=== PATIENT | male | born 1955 | race Caucasian/White ===

== ENCOUNTER 2018-08-04 13:20 | Emergency (ER) | payer SELFPAY ==
[2018-08-04] MEDS ORDERED: NS 0.9% 1000 ML** 1,000 ML IV ONE (13:25)
--- NOTE | 2018-08-04 13:28 | ED ---
Neurological HPI - HPI Summary HPI Summary: This patient is a 62 year old M presenting to [facility] with a chief complaint of dizziness, slurred speech, facial droop, and difficulty standing beginning 35 minutes ago. Patient additionally vomited prior to arrival. Patient is unsure of any history of HTN, CAD, high cholesterol. He denies any current medications. - History of Current Complaint Stated Complaint: Code Muñoz Last Known Well Date: 12:45 08/04/18 Hx Obtained From: Patient Onset/Duration: Sudden Onset, Started minutes ago Timing: Constant Neurological Deficit Location: Facial Character: Dizzy, Motor Weakness, Impaired Speech Episode Lasting: Seconds/Minutes Aggravating: Nothing Alleviating: Nothing Associated Signs and Symptoms: Positive: Unsteady Gait, Impaired Speech, Nausea/ Vomiting - Allergy/Home Medications Allergies/Adverse Reactions: Allergies Allergy/AdvReac Type Severity Reaction Status Date / Time No Known Allergies Allergy Verified 08/04/18 14:17 PMH/Surg Hx/FS Hx/Imm Hx Endocrine/Hematology History: Denies: Hx Anticoagulant Therapy Cardiovascular History: Denies: Hx Coronary Artery Disease, Hx Hypercholesterolemia, Hx Hypertension Neurological History: Denies: Hx Transient Ischemic Attacks (TIA) - Surgical History Surgery Procedure, Year, and Place: none reported Infectious Disease History: Unable to Obtain/Confirm - Family History Known Family History: Positive: Hypertension - Social History Lives: With Family Alcohol Use: Rare Hx Substance Use: No Substance Use Type: Reports: None Review of Systems Positive: Vomiting Neurological: Other - facial droop, dizziness Positive: Weakness, Slurred Speech All Other Systems Reviewed And Are Negative: Yes Physical Exam - Summary Physical Exam Summary: Patient evaluated at 13:19. VITAL SIGNS: Reviewed. GENERAL: Patient is a well-developed and nourished male who is lying comfortable in the stretcher. Patient is not in any acute respiratory distress. HEAD AND FACE: No signs of trauma. No ecchymosis, hematomas or skull depressions. No sinus tenderness. Facial droop. EYES: PERRLA, EOMI x 2, No injected conjunctiva, no nystagmus. EARS: Hearing grossly intact. Ear canals and tympanic membranes are within normal limits. MOUTH: Oropharynx within normal limits. NECK: Supple, trachea is midline, no adenopathy, no JVD, no carotid bruit, no c- spine tenderness, neck with full ROM. CHEST: Symmetric, no tenderness at palpation LUNGS: Clear to auscultation bilaterally. No wheezing or crackles. CVS: Regular rate and rhythm, S1 and S2 present, no murmurs or gallops appreciated. ABDOMEN: Soft, non-tender. No signs of distention. No rebound no guarding, and no masses palpated. Bowel sounds are normal. EXTREMITIES: FROM in all major joints, no edema, no cyanosis or clubbing. NEURO: Alert and oriented x 3. Right sided ataxia. Speech is slurred. Patient follows commands. SKIN: Dry and warm GCS: 15 Triage Information Reviewed: Yes Vital Signs Reviewed: Yes - [place] Coma Scale Best Eye Response: 4 - Spontaneous Best Motor Response: 6 - Obeys Commands Best Verbal Response: 5 - Oriented Coma Scale Total: 15 Diagnostics - Laboratory Result Diagrams: 08/04/18 13:36 08/04/18 13:36 Lab Statement: Any lab studies that have been ordered have been reviewed, and results considered in the medical decision making process. - Radiology CXR Radiology Interpretation Completed By: Radiologist Summary of Radiographic Findings: CARDIOMEGALY. NO ACTIVE CARDIOPULMONARY DISEASE. ED Physician has reviewed this report. - CT Brain CT CT Interpretation Completed By: Radiologist Summary of CT Findings: 2 CM INTRAPARENCHYMAL HEMATOMA OF THE RIGHT CEREBELLUM WITHOUT SHIFT. PRELIMINARY FINDINGS WERE DISCUSSED WITH DR. HERNANDES IN THE EMERGENCY DEPARTMENT AT. APPROXIMATELY 1:31 PM ON AUGUST 04, 2018. ED Physician has reviewd this report. - EKG 1332 Cardiac Rate: NL - 68 BPM EKG Rhythm: Sinus Rhythm Summary of EKG Findings: LVH, no STEMI, right axis NIH Scale - NIH Scale Level of Consciousness: Alert/Keenly Responsive Ask Patient the Month and His/Her Age: Both Correct Ask Pt to Open/Close Eyes and Styrene Dehydration Reactor Operator/Release Non-Paretic Hand: Both Correctly Best Gaze (Only Horizontal Eye Movement): Normal Visual Field Testing: No Visual Loss Facial Paresis-Pt to Smile & Close Eyes or Grimace Symmetry: Minor Paralysis Motor Function - Right Arm: No Drift-Holds 10 Seconds Motor Function - Left Arm: No Drift-Holds 10 Seconds Motor Function - Right Leg: No Drift-Holds 10 Seconds Motor Function - Left Leg: No Drift-Holds 10 Seconds Limb Ataxia-Must be out of Proportion to Weakness Present: Present in One Limb Sensory (Use Pinprick to Test Arms/Legs/Trunk/Face): Normal Best Language (Describe Picture, Name Items): No Aphasia Dysarthria (Read Several Words): Slurs Some Words Extinction and Inattention: No Abnormality Total Score: 3 Re-Evaluation - Re-Evaluation 1 Re-Evaluation Time: 13:49 Change: Unchanged - Results and plan discussed with patient. Patient and family prefers transfer to [facility]. Course/Dx - Course Assessment/Plan: This patient is a 62-year-old male male who presents to the emergency department with a chief complaint of having dizziness unable to ambulate. In the physical exam the patient has slurred speech facial droop and he is ataxic. Patient reports no past medical history, no surgical history and he doesnt take any medications. However the patient hasnt seen a doctor for more than the last 10 years. Therefore we called a code grade. The patient was placed in a monitor technician and we noticed that the patient is very hypertensive. Therefore the patient was given hydralazine and he was placed in initially nitroprusside however he was changed to nicardipine as a preference from Dr. Martin from [facility] ICU. Head CT impression: 2 cm intraparenchymal hematoma of the right Cerebellum without shift. Chest x-ray impression: Cardiomegaly. No active cardiopulmonary disease. EKG shows a normal sinus rhythm without evidence of the patient has an LVH. In the ED course the patient was given Keppra prevent seizures, I discussed the case with Dr. Levin from neurosurgery and he recommends for the patient to be transferred to a high level of care. Therefore I discussed the case with Dr. Martin hearing aid assembly supervisor from the [facility] and he accepted the patient for admission. He requested to change the nitroprusside to nicardipine to control the hypertensive emergency. Also he requested to give 1 dose of hydralazine. He was given potassium IV. Patient also was given Zofran to prevent any nausea. At this point the patient continues to be alert and oriented 3 and he is keeping his airway. Therefore, I decided not to intubate the patient at this time. Dr. Martin agrees with the and management doctor this point. The blood pressure has improved, from 257/113, to 214/103. The patient will be transferred with the [facility]. - Diagnoses Provider Diagnoses: Hemorrhagic cerebrovascular accident (CVA) During the Visit The Following Alert/Code Occurred: Code Chavez - 1321 - Critical Care Time Critical Care Time: 30-74 min Discharge - Sign-Out/Discharge Documenting (check all that apply): Patient Departure - transfer Patient Received Moderate/Deep Sedation with Procedure: No - Discharge Plan Condition: Guarded Disposition: TRANS HIGHER LVL OF CARE FAC Referrals: No Primary Care Phys,NOPCP [Primary Care Provider] - - Billing Disposition and Condition Condition: GUARDED Disposition: Trans Higher Lvl of Care Fac - Attestation Statements Document Initiated by Scribe: Yes Documenting Scribe: Daina iRvera Provider For Whom Anthony is Documenting (Include Credential): Dayron Hernandes MD Scribe Attestation: Daina Goodson, scribed for Dayron Hernandes MD on 08/04/18 at 1425. Scribe Documentation Reviewed: Yes Provider Attestation: The documentation as recorded by the Daina baltazar accurately reflects the service I personally performed and the decisions made by Dayron etienne MD Status of Scribe Document: Viewed
[2018-08-04] MEDS ORDERED: Labetalol IV* 5 MG/ML 20 ML VIAL IV PUSH ONE (13:29)
[2018-08-04 13:43] LABS: ABS Basophils 0.1 10^3/ul (0-0.2); ABS Eosinophils 0.1 10^3/ul (0-0.6); ABS Lymphocytes 2.5 10^3/ul (1.0-4.8); ABS Monocytes 0.9 10^3/ul (0-0.8); ABS Neutrophils 8.5 10^3/ul (1.5-7.7); ABS Nucleated RBC 0 10^3/ul; Hematocrit 46 % (36-46); Hemoglobin 15.3 g/dL (14.0-18.0); Lymphocyte % 20.8 %; Mean Corpuscular HGB Conc 33 g/dL (31-36); Mean Corpuscular Hemoglobin 29 pg (27-31); Mean Corpuscular Volume 88 fL (80-94); Mean Platelet Volume 8.2 fL (7.4-10.4); Nucleated Red Blood Cells % 0; Platelet Count 253 10^3/uL (150-450); Red Blood Count 5.26 10^6 /uL (4.18-5.48); Red Cell Distribution Width 14 % (10.5-15); White Blood Count 12.1 10^3/uL (3.5-10.8)
[2018-08-04 13:51] LABS: Activated Partial Thrombo Time 29.1 seconds (26.0-36.3); INR 0.94 (0.77-1.02)
[2018-08-04] MEDS ORDERED: nitroGLYCERIN DRIP* 25,000 MCG/250 ML BTL ONE (13:57)
[2018-08-04] MEDS ORDERED: NitroPRUSSide* 50 MG in D5W 250 ML BAG* 248 ML IVPB SCH (14:00)
[2018-08-04] MEDS ORDERED: levETIRAcetam IV* 1,000 MG in NS 0.9% 100 ML* 100 ML IVPB SCH (14:00)
[2018-08-04 14:01] LABS: Albumin 4.3 g/dL (3.2-5.2); Albumin/Globulin Ratio 1.5 (1-3); BUN/Creatinine Ratio 17.2 (8-20); Calcium 9.8 mg/dL (8.6-10.3); EGFR Non-African American 76.9 (>60); Globulin 2.9 g/dL (2-4); HDL Cholesterol 34.3 mg/dL; Potassium 3.3 mmol/L (3.5-5.0); Total Bilirubin 0.5 mg/dL (0.2-1.0); Total Protein 7.2 g/dL (6.4-8.9)
[2018-08-04 14:03] LABS: Troponin I 0.03 ng/mL (<0.04)
[2018-08-04] MEDS ORDERED: hydrALAZINE IV* 20 MG/ML VIAL IV SLOW PU ONE (14:08)
[2018-08-04] MEDS ORDERED: niCARdipine 0.1MG/ML IVPREMIX* 20 MG/200 ML BAG IV ONE (14:10)
[2018-08-04] MEDS ORDERED: hydrALAZINE IV* 20 MG/ML VIAL ONE (14:10)
[2018-08-04] MEDS ORDERED: Ondansetron INJ* 2 MG/ML VIAL ONE (14:11)
[2018-08-04] MEDS ORDERED: KCL 10 MEQ/50 ML IVPREMIX* 10 MEQ/50 ML BAG IV ONE (14:26)
[2018-08-04] MEDS ORDERED: niCARdipine 0.1MG/ML IVPREMIX* 20 MG/200 ML BAG IV SCH (15:00)
[2018-08-04 16:31] VITALS: BP 179/92
== END 2018-08-04 15:25 | disposition short-term general hospital (02) ==
LOC: ED 13:20
DX: I62.9 Nontraumatic intracranial hemorrhage, unspecified (principal); R11.2 Nausea with vomiting, unspecified; R42 Dizziness and giddiness; R53.1 Weakness
CPT/HCPCS: 36415; 70450; 71045; 80053; 80061; 83605; 84484; 85025; 85610; 85730; 86850; 86900; 86901; 93005; 96365; 96375; 99284; J0360; J2405

== ENCOUNTER 2018-08-10 11:43 | Observation (INO) | payer MEDICAID ==
[2018-08-10] MEDS ORDERED: Labetalol IV* 5 MG/ML 20 ML VIAL IV PUSH ONE (12:16)
[2018-08-10] MEDS ORDERED: Diltiazem IV* 5 MG/ML 5 ML VIAL (for loading dose/IV Push) (25 MG) IV SLOW PU ONE (12:24)
[2018-08-10] MEDS ORDERED: Diltiazem IV* 5 MG/ML 5 ML VIAL (for loading dose/IV Push) (25 MG) ONE ×2 (12:25)
--- NOTE | 2018-08-10 12:30 | ED ---
Hypertension - HPI Summary HPI Summary: The patient is a 62 y/o M presenting to [facility] with a chief complaint of HTN in the 200s mmHG systolic this morning. Six days ago, the patient was at [facility] but was transferred to [facility] due to a brain bleed, and was discharged yesterday to [facility]. Per family, [facility] wasn't aware that the patient was in the facility, so he didn't have his medications last night, but he did have them this morning at 10:00. He was not aware that he had HTN until he was at [facility] because he doesn't visit a PCP. While at [facility], it was found that he had mild some left-sided neurological changes, and he has experienced a few small strokes, microbleeding, and the bleed most recently diagnosed in the cerebellum. He had remained stable during his stay. He additionally has edema in the BLE. His is no pain at this time. - History of Current Complaint Chief Complaint: EDHypertension Stated Complaint: HIGH BLOOD PRESSURE Time Seen by Provider: 08/10/18 11:46 Hx Obtained From: Patient Onset/Duration: Started Hours Ago - this morning, Still Present Reported Blood Pressure Prior To Arrival: 200 mmHg systolic Aggravating Factor(s): Nothing Alleviating Factor(s): Nothing Associated Signs & Symptoms: Swelling - BLE - Allergies/Home Medications Allergies/Adverse Reactions: Allergies Allergy/AdvReac Type Severity Reaction Status Date / Time No Known Allergies Allergy Verified 08/10/18 12:02 Home Medications: Home Medications Acetaminophen [APAP] 650 mg PO SEE INSTRUCTIONS PRN 08/10/18 [History Confirmed 08/10/18] Atorvastatin* [Lipitor*] 80 mg PO DAILY 08/10/18 [History Confirmed 08/10/18] Docusate Sodium [Colace] 100 mg PO BID 08/10/18 [History Confirmed 08/10/18] Lisinopril 20 mg PO BID 08/10/18 [History Confirmed 08/10/18] Tamsulosin CAP* [Flomax CAP*] 0.4 mg PO DAILY 08/10/18 [History Confirmed ] amLODIPine TAB* [Norvasc 5 mg TAB*] 10 mg PO DAILY 08/10/18 [History Confirmed 08/10/18] cephALEXin [Keflex] 250 mg PO QID 08/10/18 [History Confirmed 08/10/18] PMH/Surg Hx/FS Hx/Imm Hx Endocrine/Hematology History: Denies: Hx Anticoagulant Therapy Cardiovascular History: Reports: Hx Hypertension Denies: Hx Coronary Artery Disease, Hx Hypercholesterolemia Neurological History: Denies: Hx Transient Ischemic Attacks (TIA) - Surgical History Surgery Procedure, Year, and Place: cataract surgery Infectious Disease History: No Infectious Disease History: Denies: Traveled Outside the [place] in Last 30 Days - Family History Known Family History: Positive: Hypertension - Social History Alcohol Use: Rare Hx Substance Use: No Substance Use Type: Reports: None Hx Tobacco Use: No Smoking Status (MU): Never Smoked Tobacco Review of Systems Positive: Other - hypertension Positive: Edema - in BLE All Other Systems Reviewed And Are Negative: Yes Physical Exam - Summary Physical Exam Summary: GENERAL: Patient is a well-developed and nourished male who is lying comfortable in the stretcher. Patient is not in any acute respiratory distress. HEAD AND FACE: Normocephalic EYES: PERRLA, EOMI x 2. EARS: Hearing grossly intact. MOUTH: Oropharynx within normal limits. NECK: Supple, trachea is midline, no adenopathy, no JVD, no carotid bruit. CHEST: Symmetric, no tenderness at palpation LUNGS: Clear to auscultation bilaterally. No wheezing or crackles. CVS: Regular rate and rhythm, S1 and S2 present, no murmurs or gallops appreciated. Manual BP by nurse was 180/94 mmHg. ABDOMEN: Soft, non-tender. Bowel sounds are normal. No abdominal abnormal pulsations. EXTREMITIES: Full ROM in all major joints, no edema, no cyanosis or clubbing. NEURO: Alert and oriented x 3. Left facial droop but similar to previous and otherwise no acute neurological deficits. Speech is normal and follows commands. SKIN: Dry and warm Triage Information Reviewed: Yes Vital Signs On Initial Exam: Initial Vitals Temp Pulse Resp BP Pulse Ox 99.7 F 73 24 172/92 95 08/10/18 11:51 08/10/18 11:51 08/10/18 11:51 08/10/18 11:51 08/10/18 11:51 Vital Signs Reviewed: Yes - [place] Coma Scale Best Eye Response: 4 - Spontaneous Best Motor Response: 6 - Obeys Commands Best Verbal Response: 5 - Oriented Coma Scale Total: 15 Diagnostics - Vital Signs Vital Signs Temp Pulse Resp BP Pulse Ox 08/10/18 11:51 99.7 F 73 24 172/92 95 - Laboratory Result Diagrams: 08/10/18 12:32 08/10/18 12:32 Lab Statement: Any lab studies that have been ordered have been reviewed, and results considered in the medical decision making process. - Radiology Chest x-ray Radiology Interpretation Completed By: Radiologist Summary of Radiographic Findings: 12:39. CARDIOMEGALY. NO ACTIVE CARDIOPULMONARY DISEASE. ED Physician has reviewed this imaging report. - CT Brain CT CT Interpretation Completed By: Radiologist Summary of CT Findings: 14:25. PERSISTENT RIGHT CEREBELLAR INTRAPARENCHYMAL HEMATOMA. THERE IS SLIGHTLY INCREASED. ASSOCIATED VASOGENIC EDEMA. THERE IS NO SHIFT. ED Physician has reviewed this imaging report. - EKG 12:21 Cardiac Rate: NL - 72 BPM EKG Rhythm: Sinus Rhythm EKG Comparison: No Significant Change Summary of EKG Findings: LVH and Q waves seen in inferior lead Hypertension Course/Dx - Course Course Of Treatment: The patient is a 62 y/o M with a chief complaint of HTN in the 200s mmHG systolic this morning. Upon physical exam, the patient exhibits left facial droop that is similar to previous with BP of 180/94 mmHG taken manually by nurse. Chest x-ray showed no active cardiopulmonary disease. Labs unremarkable except for Absolute Monos (auto) 0.9 H, BUN/Creatinine Ratio 26.1 H , Glucose 118 H, Troponin I 0.04 H. I spoke with Dr. Muñiz, hospitalist, who will accept the patient. She also recommends rescanning his head. I discussed results with patient. The patient agrees with this plan. Brain CT showed: Persistent right cerebellar intraparenchymal hematoma. There is slightly increased. associated vasogenic edema. There is no shift. - Diagnoses Provider Diagnoses: Hypertensive emergency - Physician Notifications Discussed Care Of Patient With: Cheryl Muñiz - Hospitalist Time Discussed With Above Provider: 13:24 Instructed by Provider To: Admit As Inpatient - Dr. Muñiz will accept the patient and also recommends rescanning his head. - Critical Care Time Critical Care Time: 30-74 min Discharge - Sign-Out/Discharge Documenting (check all that apply): Patient Departure - Admit Patient Received Moderate/Deep Sedation with Procedure: No - Discharge Plan Condition: Stable Disposition: ADMITTED TO [facility] - Billing Disposition and Condition Condition: STABLE Disposition: Admitted to [facility] - Attestation Statements Document Initiated by Anthony: Yes Documenting Scribe: Akila Kinsey Provider For Whom Anthony is Documenting (Include Credential): Dr. Chaparrita Rdz MD Scribe Attestation: Akila Goodson, scribed for Dr. Chaparrita Rdz MD on 08/10/18 at 1757. Scribe Documentation Reviewed: Yes Provider Attestation: The documentation as recorded by the Akila baltazar accurately reflects the service I personally performed and the decisions made by me, Dr. Chaparrita Rdz MD Status of Scribe Document: Viewed
[2018-08-10 12:39] LABS: ABS Basophils 0.1 10^3/ul (0-0.2); ABS Eosinophils 0.2 10^3/ul (0-0.6); ABS Lymphocytes 1.9 10^3/ul (1.0-4.8); ABS Monocytes 0.9 10^3/ul (0-0.8); ABS Neutrophils 4.9 10^3/ul (1.5-7.7); ABS Nucleated RBC 0 10^3/ul; Eosinophil % 2.6 %; Hematocrit 43 % (36-46); Hemoglobin 14.3 g/dL (14.0-18.0); Lymphocyte % 23.3 %; Mean Corpuscular HGB Conc 33 g/dL (31-36); Mean Corpuscular Hemoglobin 30 pg (27-31); Mean Corpuscular Volume 89 fL (80-94); Nucleated Red Blood Cells % 0.1; Platelet Count 257 10^3/uL (150-450); Red Blood Count 4.81 10^6 /uL (4.18-5.48); Red Cell Distribution Width 14 % (10.5-15)
[2018-08-10 12:50] LABS: Activated Partial Thrombo Time 32.7 seconds (26.0-36.3); INR 0.98 (0.77-1.02)
[2018-08-10 12:56] LABS: ALT 40 U/L (7-52); AST 30 U/L (13-39); Albumin 3.7 g/dL (3.2-5.2); Albumin/Globulin Ratio 1.3 (1-3); Alkaline Phosphatase 55 U/L (34-104); Anion Gap 4 mmol/L (2-11); BUN/Creatinine Ratio 26.1 (8-20); Blood Urea Nitrogen 23 mg/dL (6-24); CO2 Carbon Dioxide 27 mmol/L (22-32); Calcium 9.9 mg/dL (8.6-10.3); Chloride 105 mmol/L (101-111); EGFR African American 106.5 (>60); Globulin 2.8 g/dL (2-4); Glucose 118 mg/dL (70-100); Magnesium 2.1 mg/dL (1.9-2.7); Sodium 136 mmol/L (135-145); Total Protein 6.5 g/dL (6.4-8.9)
[2018-08-10 13:00] LABS: Troponin I 0.04 ng/mL (<0.04)
[2018-08-10] MEDS ORDERED: Metoprolol Succinate XL TAB* 50 MG PO ONE (13:44)
[2018-08-10] MEDS ORDERED: Acetaminophen TAB* 325 MG PO PRN (15:28)
[2018-08-10 16:09] LABS: Troponin I 0.04 ng/mL (<0.04)
[2018-08-10] MEDS: hydrALAZINE IV* 20 MG/ML VIAL IV SLOW PU PRN (16:50)
[2018-08-10] MEDS: Cephalexin CAP* 250 MG PO SCH ×2 (18:16→21:43)
[2018-08-10 18:48] LABS: Troponin I 0.05 ng/mL (<0.04)
[2018-08-10] MEDS: Atorvastatin* 80 MG TAB PO SCH (21:43)
[2018-08-10] MEDS: Lisinopril TAB* 10 MG PO SCH (21:43)
[2018-08-10] MEDS: Docusate CAP* 100 MG PO SCH (21:44)
--- NOTE | 2018-08-10 22:08 | HP ---
HISTORY AND PHYSICAL: DATE OF ADMISSION: 08/10/18 PRIMARY CARE PROVIDER: None. ATTENDING PHYSICIAN: Dr. Cheryl Muñiz * (dictated by Hodan Lira NP). CHIEF COMPLAINT: Hypertension, right-sided weakness, and dysarthria. HISTORY OF PRESENT ILLNESS: Mr. Gonzalez is a 62-year-old male with no significant past medical history per him until he presented to the ER last week on 08/04/18 with complaints of slurred speech, facial drooping, and ataxia. At that point, he had CT scan showing a 2 cm intraparenchymal hematoma of the right cerebellum without shift. He was transferred to [facility] for hypertensive urgency and a right cerebellum hemorrhagic CVA. While at [facility], he had CTA of his head on 08/05/18 showing a stable appearance of a right cerebellar parenchymal hemorrhage with mild progression of surrounding vasogenic edema and minimal effacement of superior fourth ventricle with no new intracranial bleeding. He had a brain MRI on 08/06/18 showing a foci of acute infarct in the left centrum semiovale, in the left caudate nucleus, right cerebellar hemorrhage with surrounding edema in the vermis and right cerebellar hemisphere producing mass effect on fourth ventricle. On post- contrast study, there was no enhancement within the hemorrhage. Punctate hemosiderin deposition throughout bilateral cerebellar and cerebral hemispheres. There is a multiseptated fat-intensity lesion in the right posterior scalp with enhancement of the septations. This could represent a lipoma or liposarcoma. He had a transesophageal echo on 08/07/18 showing an overall left ventricular systolic function that was normal with an EF between 55% to 60%, no LA appendage thrombus, no intra-arterial shunting, moderate aortic regurgitation, [id number] mitral regurgitation, and trace tricuspid regurgitation. He initially had suspected COPD, as he was having oxygen requirements and wheezing. He developed an acute kidney injury that resolved with IV hydration. He was started on atorvastatin and lisinopril due to persistent hypertension. He was also diagnosed with right lower extremity cellulitis, started on a course of Keflex. He was discharged yesterday 08/09/18 to [facility] for physical therapy and occupational therapy. This morning, the patient was found to have systolic blood pressures in the 200s and a left facial droop. He did receive his lisinopril and amlodipine this morning. The family requested the patient be transferred to [facility] for further evaluation. While in the emergency room, he was noted to be hypertensive with systolic blood pressures in the 170s to 180s. He received 10 mg IV diltiazem and 50 mg of p.o. metoprolol succinate. He had labs showing an elevated troponin of 0.04. He only had one previous troponin of 0.03 on 08/04/18 at the time of his initial presentation. His CBC was unremarkable. INR was in normal limits. He had a chest x-ray showing no acute findings. He had an EKG showing no acute findings, and he had a brain CT showing persistent right cerebellar intraparenchymal hematoma with slightly increased associated vasogenic edema and no shift. Case was discussed with Dr. Moss, who was comfortable with the patient being admitted to [facility] and said he would follow with the hospitalists, and the hospitalists were asked to evaluate the patient for admission. Denies fever, chills, chest pain, shortness of breath, nausea, vomiting, diarrhea, abdominal pain, dysuria, headache. He does report increased dysarthria today compared to his discharge yesterday. He continues to have difficulty with coordination of his right hand, which is unchanged per his family from discharge. Additionally, he has some left-sided facial drooping, but the family states is similar to previous. PAST MEDICAL HISTORY: 1. Hypertension. 2. Right cerebellar hemorrhagic stroke. PAST SURGICAL HISTORY: Status post bilateral cataract extractions. HOME MEDICATIONS: Include: 1. Flomax 0.4 mg by mouth daily. 2. Lisinopril 20 mg by mouth twice daily. 3. Colace 100 mg by mouth twice daily. 4. Keflex 250 mg by mouth 4 times daily, due to stop with the evening dose on 08/11/18. 5. Atorvastatin 80 mg by mouth daily. 6. Acetaminophen 650 mg by mouth 4 times daily as needed for pain. ALLERGIES: No known drug allergies. FAMILY HISTORY: The patient's father with a history of bradycardia and bladder cancer. Mother with a history of congestive heart failure. No family history of diabetes mellitus. SOCIAL HISTORY: Denies tobacco, alcohol, or recreational drug use. He previously lived alone with some help from his niece. His niece, Salena, will be his surrogate decision maker in the event he is unable to make decisions for himself. REVIEW OF SYSTEMS: I performed a 10-point review of systems. All the pertinent positives and negatives are mentioned in the history of present illness. Remaining review of systems are negative. PHYSICAL EXAMINATION GENERAL APPEARANCE: Alert, pleasant, appears to be in no acute distress. VITAL SIGNS: Temperature 99.7, heart rate 65, respiratory rate 21, O2 sat 96% on room air, blood pressure 153/78. HEENT: Normocephalic, atraumatic. Pupils are equal and reactive to light. Extraocular movements are intact. NECK: Supple. RESPIRATORY: No accessory muscle use. Lungs are clear to auscultation bilaterally. CARDIOVASCULAR: Regular rate and rhythm. He does have a systolic 3/6 murmur. ABDOMEN: Bowel sounds present. Abdomen is large, soft, nontender, nondistended. EXTREMITIES: There is bilateral lower extremity edema with the right lower erythema more edematous than the left. DP and PT pulses are 1+ and symmetric. MUSCULOSKELETAL: No clubbing or cyanosis noted. NEUROLOGICAL: Alert and oriented x4. Cranial nerves II through XII are grossly intact. His smile shows some left-sided facial droop. Tongue is midline. He is able to perform [id number] bilateral, but does have some ataxia when performing this on the right side. He also is noted to have some slight right lower extremity weakness and right upper extremity weakness. He is able to perform heel from ankle to knee bilateral, again with some ataxia when performing this on the right side. His hand chief architect are equal. PSYCHOLOGICAL: Calm and cooperative. SKIN: He has some mild erythema and what appears to be chronic skin darkening to the right lower extremity. DIAGNOSTIC STUDIES/LAB DATA: Sodium 136, potassium 4.0, chloride 105, CO2 of 27, BUN 23, creatinine 0.88, glucose 118. White blood cell count 8.0, hemoglobin 14.3, hematocrit 43, and platelet count 257. Troponin 0.04. EKG shows a sinus rhythm, rate of 72. There are no acute signs of ischemia. This EKG is similar to previous from 08/04/18. Chest x-ray from today, radiologist's impression: Cardiomegaly, no active cardiopulmonary disease. Brain CT from today, radiologist's impression: Persistent right cerebellar intraparenchymal hematoma. There is slightly increased associated vasogenic edema. There is no shift. IMPRESSION: Mr. Gonzalez is a 62-year-old male with past medical history significant for hypertension and right cerebellar hemorrhagic cerebrovascular accident who presented to the emergency room with complaints of hypertension and increased dysarthria. He will be admitted as an observation for hypertension and recent right cerebellar cerebrovascular accident. ASSESSMENT\PLAN: 1. Hypertension. The patient has been hypertensive with systolic blood pressures in the 170s and 180s in the ER. His blood pressures did improve to the 140s and 150s after a dose of diltiazem. The plan will be to continue his amlodipine and his lisinopril. I have ordered hydralazine as needed to keep systolic blood pressures less than 150 in the setting of recent hemorrhagic cerebrovascular accident, have neuro checks q.4 hours, will be monitored on telemetry. 2. Right cerebellar cerebrovascular accident. The patient initially presented to the hospital on 08/04/18 with a right cerebellar cerebrovascular accident and was discharged from [facility] to [facility] for rehabilitation. The stroke appears fairly stable from initial imaging. I have discussed the case with Dr. Moss, who has agreed to follow along and assist with the patient as needed. We will do neuro checks q.4 hours. I do not see where he had a hemoglobin A1c completed with the stroke workup at [facility], so I have added a hemoglobin A1c to his labs. He will be continued on atorvastatin. He is not on an aspirin due to his hemorrhagic bleed. I am going to do a bedside swallow eval as he does have increased dysarthria today and has history of pocketing his foods per his family at bedside. 3. Right lower extremity cellulitis appears to be improving. He has no leukocytosis, is afebrile. We will complete his dose of Keflex, which is due to complete tomorrow 08/11/18 in the evening. 4. Benign prostatic hyperplasia. Continue Flomax. 5. Fluid, electrolytes, and nutrition. He will be on a heart-healthy diet once he is able to pass his swallow evaluation 6. Code status. Full code. 7. DVT prophylaxis. He is at high risk, chemical DVT prophylaxis is contraindicated. He will have SCDs only in the setting of a hemorrhagic cerebrovascular accident. 8. Disposition. Observation. TIME SPENT: Time for this admission was approximately 60 minutes, greater than half of that was spent with the patient and family discussing past medical history, the events leading up to his arrival today, and performing a physical examination. The case has been reviewed with the attending, Dr. Muñiz, who agrees with the plan of care. HODAN LIRA, DATA OPERATIONS LEADER [id number]/[facility] #: [id number] ERICKA
[2018-08-11 00:05] LABS: Troponin I 0.04 ng/mL (<0.04)
--- NOTE | 2018-08-11 07:28 | PN ---
Subjective Date of Service: 08/11/18 Interval History: Mr. Gonzalez reports feeling well this morning. He and his family feels that his speech is back to baseline. He denies other complaint. Objective Active Medications: Acetaminophen (Tylenol Tab*) 650 mg PO Q6H PRN Amlodipine Besylate (Norvasc Tab*) 10 mg PO DAILY IKE Atorvastatin Calcium (Lipitor*) 80 mg PO BEDTIME IKE Cephalexin HCl (Keflex Cap*) 250 mg PO QID IKE Docusate Sodium (Colace Cap*) 100 mg PO BID IKE Hydralazine HCl (Apresoline Iv*) 5 mg IV SLOW PU Q6H PRN Lisinopril (Prinivil Tab*) 20 mg PO BID IKE Pneumococcal Polyvalent Vaccine (Pneumococcal Vac 23-Polyvalent*) 0.5 ml IM .ONCE ONE Tamsulosin HCl (Flomax Cap*) 0.4 mg PO DAILY IKE Vital Signs: Temp Pulse Resp BP Pulse Ox 98.7 F 63 20 160/89 97 08/11/18 03:50 08/11/18 06:35 08/11/18 06:35 08/11/18 06:35 08/11/18 06:35 Oxygen Devices in Use Now: Nasal Cannula Appearance: Male lying in bed in NAD Eyes: No Scleral Icterus Ears/Nose/Mouth/Throat: Mucous Membranes Moist Neck: Trachea Midline Respiratory: Symmetrical Chest Expansion and Respiratory Effort, Clear to Auscultation Cardiovascular: NL Sounds; No Murmurs; No JVD, No Edema Abdominal: NL Sounds; No Tenderness; No Distention Extremities: No Edema Skin: No Rash or Ulcers Neurological: Alert and Oriented x 3, NL Muscle Strength and Tone, - - Speech seems slurred but patient and family feel that he is back to baseline Nutrition: Taking PO's Result Diagrams: 08/10/18 12:32 08/10/18 12:32 Assess/Plan/Problems-Billing Assessment: Mr. Gonzalez is a 62 yo M with a PMH of recent treatment at [facility] (08/04-) for intraparenchymal hematoma, hypertensive urgency, TERRI, COPD, and R LE cellulitis who was discharged to [facility] for rehabilitation and is now admitted on 08/10/18 with slurred speech and hypertensive urgency. - Patient Problems (1) Hypertensive urgency Comment: - SBP 180s on presentation, now 140-160s, after given multiple prn agents IV - Continue amlodipine, lisinopril. Add hctz. (2) CVA (cerebral vascular accident) Comment: - Right cerebellar, hemorrhaghic - Goal SBP 140s - Continue atorvastatin - PT ordered (3) Cellulitis Comment: - Resolved - Continue keflex, last dose today (4) DVT prophylaxis Comment: - SCDs only in setting of recent hemorrhagic CVA (5) Full code status Comment: Status and Disposition: Inpatient. Transfer to telemetry monitoring for continued close blood pressure monitoring and neuro checks. Patient and family do not want patient to return to [facility]. Are considering taking him home instead, PT eval ordered.
[2018-08-11] MEDS: Lisinopril TAB* 10 MG PO SCH ×2 (08:15→20:42)
[2018-08-11] MEDS: Hydrochlorothiazide TAB* 25 MG PO SCH (08:15)
[2018-08-11] MEDS: amLODIPine TAB* 5 MG PO SCH (08:15)
[2018-08-11] MEDS: Cephalexin CAP* 250 MG PO SCH ×3 (08:15→16:28)
[2018-08-11] MEDS: Tamsulosin CAP* 0.4 MG PO SCH (08:15)
[2018-08-11] MEDS: Docusate CAP* 100 MG PO SCH ×2 (08:18→21:42)
[2018-08-11] MEDS ORDERED: Pneumococcal *Vac Polyvalent 0.5 ML VIAL IM ONE (09:00)
[2018-08-11] MEDS: hydrALAZINE IV* 20 MG/ML VIAL IV SLOW PU PRN (14:13)
--- NOTE | 2018-08-11 18:02 | PN ---
Progress Note - Progress Note Date of Service: 08/11/18 SOAP: Subjective: [] Patient with history of right cerebellar bleed suffered 08/04. Patient was seen at [facility] and referred to [facility] for treatment. He was discharged to rehab and was noted to be markedly hypertensive yesterday. He was taken back to the ER where he had a follow up CT which was intrepreted as showing increased edema around his hematoma.He denies any headache or new neurological issue.He is having difficulty ambulating. Objective: []Awake,alert, denies headache Finger to nose normal EOMs full No nystagmus Assessment: []Hypertensive cerebellar hemorrhage Plan: []He is stable at this point. I do not anticipate the need for surgery at this point
[2018-08-11] MEDS: Atorvastatin* 80 MG TAB PO SCH (20:42)
[2018-08-12] MEDS: hydrALAZINE IV* 20 MG/ML VIAL IV SLOW PU PRN (01:06)
[2018-08-12] MEDS ORDERED: hydrALAZINE IV* 20 MG/ML VIAL IV SLOW PU PRN (04:38)
[2018-08-12] MEDS ORDERED: hydrALAZINE IV* 20 MG/ML VIAL ONE ×2 (04:42)
[2018-08-12] MEDS ORDERED: Pneumococcal *Vac Polyvalent 0.5 ML VIAL IM ONE (09:00)
[2018-08-12] MEDS: Lisinopril TAB* 10 MG PO SCH (10:02)
[2018-08-12] MEDS: Hydrochlorothiazide TAB* 25 MG PO SCH (10:02)
[2018-08-12] MEDS: Tamsulosin CAP* 0.4 MG PO SCH (10:02)
[2018-08-12] MEDS: Docusate CAP* 100 MG PO SCH (10:02)
[2018-08-12] MEDS: amLODIPine TAB* 5 MG PO SCH (10:02)
[2018-08-12 12:05] VITALS: BP 149/63
--- NOTE | 2018-08-12 23:23 | DS ---
CC: Dr. Moss; [facility] * DISCHARGE SUMMARY: DATE OF ADMISSION: 08/10/18 DATE OF DISCHARGE: 08/12/18 ATTENDING PROVIDER: Cheryl Muñiz MD * (DICTATED BY BILLY PETTY NP ) PRIMARY CARE PROVIDER: Going to be [facility]. HISTORY OF PRESENT ILLNESS/HOSPITAL COURSE: This is a 62-year-old male with recent history of intra-parenchymal hematoma, hypertensive urgency for which he was treated at [facility] from 08/04/18 to 08/09/18. The patient was discharged to [facility] for short-term rehab; however, at [facility], it was noted that he had some elevated blood pressures and some slurred speech. They were concerned that the patient's intraparenchymal hemorrhage was expanding and that perhaps he was having another stroke and he had some uncontrolled blood pressure. He also had mildly elevated troponins at 0.04 x3; however, he did not complain of any chest pain or other anginal equivalents. For these reasons, he was admitted to the hospital. His blood pressure was controlled with additional agents. He was seen by Neurosurgery, Dr. Moss, who evaluated his imaging. He did note the previous hypertensive cerebellar infarct; however, he was stable and did not feel the need for any kind of surgical intervention at this time. The patient also had a mild case of cellulitis on the lower extremity for which he was treated with Keflex for a complete course. The patient's blood pressure was well controlled. Medications were titrated and the patient was ready for discharge to home today. DISCHARGE DIAGNOSES: 1. Hypertensive urgency, at admission, blood pressure was 180 to 190 systolic, now well controlled. 2. History of recent cerebrovascular accident with hemorrhagic infarct, now stable. 3. Cellulitis that has resolved. DISCHARGE MEDICATIONS: Include: 1. Atorvastatin 80 mg p.o. daily. 2. Hydrochlorothiazide 25 mg p.o. daily. 3. Lisinopril 20 mg p.o. b.i.d. 4. Flomax 0.4 mg daily. 5. Amlodipine 10 mg daily. 6. Tylenol 650 mg p.o. as needed. 7. Colace 100 mg p.o. b.i.d. as needed. REVIEW OF SYSTEMS: On day of discharge, the patient denies any fever, fatigue, or chills. No headache, no blurred vision. No weakness. No chest pain, no shortness of breath. No nausea, no vomiting, no abdominal pains, and no further constitutional complaints. PHYSICAL EXAMINATION: The patient is awake, alert. Family is at bedside. He is in no acute distress. Vital signs are blood pressure 145/64, heart rate 71, respiratory rate 20, O2 saturation 93% on room air with a temperature of 97.7. HEENT: The patient is atraumatic, normocephalic. PERRLA. Anicteric sclerae. Oral mucosa is moist. Neck is supple. No JVD noted. No carotid bruit auscultated. Cardiovascular: S1, S2 present. No murmurs, gallops, or rubs noted. Rate and rhythm were regular. Lungs are clear bilaterally to auscultation with no wheezing, rhonchi, or rales. Abdomen is soft, nontender, and nondistended, somewhat obese. Positive bowel sounds in all 4 quadrants. No organomegaly noted. : Deferred. Musculoskeletal: There is no clubbing, no cyanosis, no edema. He has +2 distal pulses palpable. Full range of motion and steady gait. Neurologic: Grossly intact with no focal deficits noted. Psychiatric: He is cooperative and appropriate. LABORATORY DATA: WBCs 8.0, RBCs 4.81, hemoglobin 14.3, hematocrit 43, platelets 257. Sodium 136, potassium 4.0, chloride 105, BUN 23, creatinine 0.88 , GFR 88, glucose 118, hemoglobin A1c 6.0, lactic acid 0.9, calcium 9.9, magnesium 2.1. Bilirubin 0.40, AST 30, ALT 40, alk phos 55. BNP 19. Total protein 6.5, albumin 3.7, globulin 2.8. DISPOSITION: The patient was discharged to home in the care of family in stable condition. FOLLOWUP: The patient and his family members were instructed to call [place] for followup. At the time of discharge, the patient's family member has obtained an appointment with [facility] for the end of this week. He was also instructed to follow up with visiting nurse service of [facility]. ACTIVITY: Progress activity as tolerated. No heavy lifting. DIET: Heart healthy as tolerated. TIME SPENT: Approximately 35 minutes evaluating the patient, reconciling medications, and discussing discharge plan of care with him and his family. BILLY PETTY, MANUFACTURING QUALITY ENGINEER [id number]/[facility] #: [id number] [facility]
== END 2018-08-12 14:39 | disposition home or self-care (01) ==
LOC: ED 11:43 → ICU 15:13 → UNDOADMIN 15:13 → INTOOBSV 15:13 → MEDTELE 08-11 08:51 → ICU 08-11 08:51
PROVIDERS: ADMIT Internal Medicine; ATTEND Internal Medicine
DX: I16.1 Hypertensive emergency (principal); I10 Essential (primary) hypertension; R60.9 Edema, unspecified; L03.90 Cellulitis, unspecified; Z86.73 Personal history of transient ischemic attack (TIA), and cerebral infarction without residual deficits; R53.1 Weakness; R47.1 Dysarthria and anarthria
CPT/HCPCS: 36415; 70450; 71045; 80053; 83036; 83605; 83735; 83880; 84484; 85025; 85610; 85730; 87641; 90471; 90732; 93005; 96374; 96375; 99285; A9270-GY; G0009; G0378; J0360

== ENCOUNTER 2018-11-29 17:34 | Inpatient (IN) | payer MEDICAID, OTHER ==
--- NOTE | 2018-11-29 17:41 | ED ---
Neurological HPI - HPI Summary HPI Summary: Gray Chavez called from the field by [facility] and overhead at 17:17, ETA 10 minutes. This pt is a 63 y/o male presenting to [facility] via EMS for dizziness and weakness today. Patient was seen on 08/04/18 for similar symptoms, nausea, vomiting, dizziness, weakness and had a CT scan that showed a hemorrhagic stroke. Patient was transferred to [facility] in [place] and stayed there for a couple of weeks. Per EMS, pt had physical therapy and was back to himself. EMS reports today the pt was mowing his law when he became dizzy. Per EMS, pt stumbled into the house and became weak. Pt did not fall. EMS notes pt was unable to get up by himself and took 2 people to get the patient up, unusual for the patient. Upon arrival EMS noticed pt had a right sided facial droop and was leaning to the right when trying to ambulate him. Per EMS, some family members reported pt had slurred speech while others reported pt's speech was normal. Last well known is at 15:30 today. Home Medications Medication Instructions Recorded Confirmed Type Atorvastatin* [Lipitor 80 MG*] 80 mg PO DAILY #14 tab 08/12/18 11/29/18 Rx Tamsulosin CAP* [Flomax CAP*] 0.4 mg PO DAILY #14 cap 08/12/18 11/29/18 Rx amLODIPine TAB* [Norvasc 5 mg TAB*] 10 mg PO DAILY #14 tab 08/12/18 11/29/18 Rx Chlorthalidone TAB* [Hygroton TAB*] 25 mg PO DAILY 11/29/18 11/29/18 History Lisinopril TAB* [Prinivil TAB*] 20 mg PO BID 11/29/18 11/29/18 History Spironolactone TAB* [Aldactone 50 mg PO QAM 11/29/18 11/29/18 History TAB*] - History of Current Complaint Stated Complaint: GRAY GARCIA PER EMS Hx Obtained From: Patient, Family/Voice Coach, EMS Onset/Duration: Sudden Onset, Started hours ago, Still Present Timing: Constant Onset Severity: Moderate Current Severity: Moderate Neurological Deficit Location: Facial Pain Intensity: 0 Character: Weak, Dizzy, Impaired Speech, Other: - POSITIVE: slurred speech, leaning to the right upon ambulation, right sided facial droop Aggravating: Nothing Alleviating: Nothing Associated Signs and Symptoms: Positive: Unsteady Gait - leaning to the right, Weakness, Dizziness, Impaired Speech. Negative: Fever TPA Considered: No - due to hemorrhagic stroke in 07/2018 Similar Episode/Dx as: hemorrhagic stroke on 08/04/18 - Additional Pertinent History Primary Care Physician: KENNETH - Allergy/Home Medications Allergies/Adverse Reactions: Allergies Allergy/AdvReac Type Severity Reaction Status Date / Time No Known Allergies Allergy Verified 08/10/18 12:02 Home Medications: Home Medications Chlorthalidone TAB* [Hygroton TAB*] 25 mg PO DAILY 11/29/18 [History Confirmed 11/29/18] Lisinopril TAB* [Prinivil TAB*] 20 mg PO BID 11/29/18 [History Confirmed ] Spironolactone TAB* [Aldactone TAB*] 50 mg PO QAM 11/29/18 [History Confirmed ] PMH/Surg Hx/FS Hx/Imm Hx Previously Healthy: No Endocrine/Hematology History: Denies: Hx Anticoagulant Therapy Cardiovascular History: Reports: Hx Hypertension Denies: Hx Coronary Artery Disease, Hx Hypercholesterolemia Sensory History: Reports: Hx Cataracts, Hx Vision Problem - reading glasses Denies: Hx Contacts or Glasses, Hx Hearing Aid, Hx Hearing Problem Opthamlomology History: Reports: Hx Cataracts, Hx Vision Problem - reading glasses Denies: Hx Contacts or Glasses Neurological History: Reports: Hx CVA - hemorrhagic Denies: Hx Transient Ischemic Attacks (TIA) - Surgical History Surgical History: Yes Surgery Procedure, Year, and Place: cataract surgery Hx Anesthesia Reactions: No Infectious Disease History: No - Family History Known Family History: Positive: Hypertension - Social History Alcohol Use: Rare Hx Substance Use: No Substance Use Type: Reports: None Hx Tobacco Use: No Smoking Status (MU): Never Smoked Tobacco Review of Systems Negative: Fever ENT: Negative Cardiovascular: Negative Respiratory: Negative Gastrointestinal: Negative Positive: no symptoms reported Musculoskeletal: Negative Skin: Negative Neurological: Other - POSITIVE: dizziness, leaning to the right upon ambulation Positive: Weakness, Slurred Speech Psychological: Normal All Other Systems Reviewed And Are Negative: Yes Physical Exam - Summary Physical Exam Summary: Appearance: Ill-appearing, no acute pain distress, well-nourished Skin: Warm, color reflects adequate perfusion, dry Head: minimal right facial droop, atraumatic Eyes: Conjunctiva clear, PERRL, EOMI, no nystagmus ENT: Normal inspection Neck: Supple, no nodes, no JVD Respiratory: Lungs clear, normal breath sounds, no respiratory distress Cardio: RRR, No murmur, pulses normal, brisk capillary refill Abdomen: Soft, nontender Bowel sounds: Present Musculoskeletal: Strength Intact/ROM intact, no calf tenderness, no edema. Psychological: Normal Neuro: Alert O x 3, muscle tone normal, facial droop on the right, mild dysarthria, gait not tested but per EMS pt leans to the right when ambulating with assistance, but strength UE and LE is normal NIH 2 GCS: 15 Triage Information Reviewed: Yes Vital Signs On Initial Exam: Temperature of 98.7 F Heart rate of 65 bpm Respiratory rate is 16 O2 saturation is 97% Blood Pressure is 123/60 Vital Signs Reviewed: Yes Diagnostics - Laboratory Result Diagrams: 11/30/18 06:06 11/30/18 06:06 Lab Statement: Any lab studies that have been ordered have been reviewed, and results considered in the medical decision making process. - Radiology Chest XR Radiology Interpretation Completed By: ED Physician Summary of Radiographic Findings: No acute disease. - CT Brain CT CT Interpretation Completed By: Radiologist Summary of CT Findings: IMPRESSION: There is no evidence of intracranial mass or hemorrhage is noted. Old hematoma in the right cerebellar hemisphere is not identified currently. Findings discussed with Dr. Sanon at [address] Interpretation Completed By: Radiologist Summary of CT Findings: IMPRESSION: 1. No acute intracranial arterial occlusions or severe stenosis. 2. Atherosclerotic nonstenotic bilateral internal carotid arteries. Dr. Sanon has reviewed this report. Neck CTA CT Interpretation Completed By: Radiologist Summary of CT Findings: IMPRESSION: Normal neck CTA. Dr. Sanon has reviewed this report. NIH Scale - NIH Scale Level of Consciousness: Alert/Keenly Responsive Ask Patient the Month and His/Her Age: Both Correct Ask Pt to Open/Close Eyes and Tilt Wall Supervisor/Release Non-Paretic Hand: Both Correctly Best Gaze (Only Horizontal Eye Movement): Normal Visual Field Testing: No Visual Loss Facial Paresis-Pt to Smile & Close Eyes or Grimace Symmetry: Minor Paralysis Motor Function - Right Arm: No Drift-Holds 10 Seconds Motor Function - Left Arm: No Drift-Holds 10 Seconds Motor Function - Right Leg: No Drift-Holds 10 Seconds Motor Function - Left Leg: No Drift-Holds 10 Seconds Limb Ataxia-Must be out of Proportion to Weakness Present: Absent Sensory (Use Pinprick to Test Arms/Legs/Trunk/Face): Normal Best Language (Describe Picture, Name Items): No Aphasia Dysarthria (Read Several Words): Slurs Some Words Extinction and Inattention: No Abnormality Total Score: 2 Re-Evaluation - Re-Evaluation First Eval Re-Evaluation Time: 20:09 Change: Unchanged Comment: No new deficit. No pain. No MURRELL, dizziness. Second Eval Re-Evaluation Time: 22:10 Change: Unchanged Comment: No change. No C/O. Passed his dysphagia screen per CRISPIN Helms. Will give his usual lisinopril 20mg po.that is due at this time per his . Pt and family advised he will be admitted. Course/Dx - Course Course Of Treatment: Gray Chavez was called overhead from the field at 17:17, ETA 10 minutes. Patient was immediately evaluated upon arrival via EMS at 17:36 in the [place]. Patient to CT at 17:37. Spoke with [facility] to initiate TeleStroke at 17:41. Patient is back from CT at 17:48. Brain CT results reported as negative by radiologist, Dr. Zuniga, at 17:48. Discussed pt care with Dr. Griffith, neurologist from [facility], at 17:49 who reports patient is not a candidate for TPA, recommends CTA of the head and neck. Dr. Griffith also reports patient is not a candidate for mechanical thrombectomy based on NIH score of 2 and states physical video TeleStroke is not necessary at this time. Assessment/Plan: Pt is a 63 y/o male presenting to [facility] via EMS for dizziness and weakness today. Patient was seen on 08/04/18 for similar symptoms, nausea, vomiting, dizziness, weakness and had a cat scan that showed a hemorrhagic stroke. Dr. Sanon immediately evaluated the patient upon EMS arrival. NIH score is 2. GCS is 15. Patient was taken to CT. Pts medications reviewed this visit. Nurses notes reviewed. Brain CT shows there is no evidence of intracranial mass or hemorrhage is noted. Old hematoma in the right cerebellar hemisphere is not identified currently. Discussed pt care with Dr. Griffith, neurologist from [facility], who reports patient is not a candidate for TPA, recommends CTA of the head and neck. Dr. Griffith also reports patient is not a candidate for mechanical thrombectomy based on NIH score of 2 and states physical video TeleStroke is not necessary at this time. Discussed with Dr. Anguiano, hospitalist, who accepted the pt for admission. Head CTA reveals 1. No acute intracranial arterial occlusions or severe stenosis. 2. Atherosclerotic nonstenotic bilateral internal carotid arteries. Neck CTA shows normal CTA. Discussed with Dr. Corrales, neurologist, who recommends an echo with bubble study tomorrow if possible and admit hospitalists. - Differential Dx Differential Diagnoses Neuro: Positive: Cerebrovascular Accident, Hypertension, Intracranial Bleed, Seizure Disorder - Diagnoses Provider Diagnoses: Stroke, TERRI (acute kidney injury) During the Visit The Following Alert/Code Occurred: Code Chavez - overhead at 17: 17, ETA 10 minutes - Physician Notifications Discussed Care Of Patient With: Bhavna Zuniga Time Discussed With Above Provider: 17:48 Instructed by Provider To: Other - Dr. Zuniga, radiologist, reports CT results. [ 17:49] Discussed pt care with Dr. Griffith, neurologist from [facility], who reports patient is not a candidate for TPA, recommends CTA of the head and neck. Dr. Griffith also reports patient is not a candidate for mechanical thrombectomy based on NIH score of 2 and states physical video TeleStroke is not necessary at this time. [18:29] Discussed with Dr. Anguiano, hospitalist, who accepted the pt for admission. [20:37] Discussed with Dr. Corrales, neurologist, who recommends echo with bubble study tomorrow. - Critical Care Time Critical Care Time: 30-74 min Discharge - Sign-Out/Discharge Documenting (check all that apply): Patient Departure - Admit to [facility] Patient Received Moderate/Deep Sedation with Procedure: No - Discharge Plan Condition: Stable Disposition: ADMITTED TO [facility] - Billing Disposition and Condition Condition: STABLE Disposition: Admitted to [facility] - Attestation Statements Document Initiated by Scribe: Yes Documenting Scribe: Sheridan Cervantes Provider For Whom Scribe is Documenting (Include Credential): Grisel Sanon MD Scribe Attestation: Sheridan Goodson, scribed for Grisel Sanon MD on 12/02/18 at 0100. Scribe Documentation Reviewed: Yes Provider Attestation: The documentation as recorded by the scribe, Sheridan Cervantes accurately reflects the service I personally performed and the decisions made by me, Grisel Sanon MD Status of Scribe Document: Viewed
[2018-11-29] MEDS ORDERED: NS 0.9% 1000 ML** 1,000 ML IV ONE (17:58)
[2018-11-29 18:08] LABS: ABS Basophils 0.1 10^3/ul (0-0.2); ABS Eosinophils 0.1 10^3/ul (0-0.6); ABS Lymphocytes 1.9 10^3/ul (1.0-4.8); ABS Monocytes 0.8 10^3/ul (0-0.8); ABS Neutrophils 8.7 10^3/ul (1.5-7.7); Eosinophil % 1.1 %; Hematocrit 36 % (42-52); Hemoglobin 12.1 g/dL (14.0-18.0); Lymphocyte % 16.6 %; Mean Corpuscular HGB Conc 34 g/dL (31-36); Mean Corpuscular Hemoglobin 31 pg (27-31); Mean Corpuscular Volume 90 fL (80-94); Mean Platelet Volume 8.2 fL (7.4-10.4); Nucleated Red Blood Cells % 0.1; Platelet Count 209 10^3/uL (150-450); Red Blood Count 3.92 10^6 /uL (4.18-5.48); Red Cell Distribution Width 14 % (10-15); White Blood Count 11.7 10^3/uL (3.5-10.8)
[2018-11-29 18:16] LABS: Activated Partial Thrombo Time 27.9 seconds (26.0-38.0)
[2018-11-29] MEDS ORDERED: Ondansetron INJ* 2 MG/ML VIAL IV ONE (18:17)
[2018-11-29 18:23] LABS: Albumin 4.2 g/dL (3.2-5.2); Albumin/Globulin Ratio 1.4 (1-3); BUN/Creatinine Ratio 22.5 (8-20); Calcium 10.2 mg/dL (8.6-10.3); EGFR African American 56.9 (>60); EGFR Non-African American 47.1 (>60); Globulin 3.1 g/dL (2-4); HDL Cholesterol 24.2 mg/dL; Potassium 4.2 mmol/L (3.5-5.0); Total Bilirubin 0.4 mg/dL (0.2-1.0); Total Protein 7.3 g/dL (6.4-8.9)
[2018-11-29 18:24] LABS: Troponin I 0.01 ng/mL (<0.04)
[2018-11-29] MEDS ORDERED: Iodixanol* (CONTRAST) 320 MG/ML 100 ML SDV IV ONE (18:50)
[2018-11-29] MEDS ORDERED: Ondansetron INJ* 2 MG/ML VIAL IV PRN (22:01)
[2018-11-29] MEDS ORDERED: Acetaminophen TAB* 325 MG PO PRN (22:01)
[2018-11-29] MEDS ORDERED: Lisinopril TAB* 10 MG PO ONE (22:15)
[2018-11-29 22:29] LABS: Urine Appearance Clear; Urine Bilirubin Negative (Negative); Urine Blood Negative (Negative); Urine Color Yellow; Urine Glucose Negative (Negative); Urine Ketones Negative (Negative); Urine Nitrite Negative (Negative); Urine Protein Negative (Negative); Urine Specific Gravity 1.015 (1.010-1.030); Urine Urobilinogen Negative (Negative)
[2018-11-29] MEDS ORDERED: Lactated Ringers 1000 ML Bag* 1,000 ML IV SCH (23:00)
--- NOTE | 2018-11-30 02:25 | HP ---
CC: Niki Vázquez, [place] * MEDICINE HISTORY AND PHYSICAL: DATE OF ADMISSION: 11/29/18 PRIMARY CARE PROVIDER: Dr. Ruizhrie in [place]. PROVIDER: Daryl Fernandez NP ATTENDING PHYSICIAN: Dr. Eliane Tucker * (dictated by Daryl Fernandez NP). CONSULTING PROVIDER: Dr. Melvin Corrales of Neurology. CHIEF COMPLAINT: Dizziness, weakness, and slurred speech. HISTORY OF PRESENT ILLNESS: Mr. Gonzalez is a 63-year-old male, who presented to the ER today with concern for dizziness, weakness, and slurring of speech. He carries a history of recent right cerebellar hemorrhagic CVA in July of this year. He was hospitalized at [facility] from 08/04/18 through 08/09/18. Since that time, he has returned to home. His family states that he has been able to recover, no longer requires a walker. At baseline, when he gets tired, he may have some slurred speech and he gets tired faster than usual. Otherwise , his ambulation has improved. He no longer requires a walker. He is steady. 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 Today, the patient was reportedly mowing the lawn. He was outside for a bit. He called his niece and spoke to her on the phone and then went back inside. When he was inside, he started to not feel well. He reports that he felt dizzy, and he sat down. He became concerned and called his family. His sister, Michela, came and checked on him. She reports that he was reporting dizziness and became sick and went into the bathroom. When he came back out, he was still endorsing dizziness, and there was concern for some slurring of speech. His other sister, who also lives nearby, Salena, came over and she noted that his eyes were not tracking well and that he was clammy. Symptoms persisted for about an hour before EMS arrived. They activated Code Muñoz upon arrival based on his symptoms and his presentation , which included right-sided facial droop and right-sided leaning. He presented to the ER as a Code Muñoz, which was initiated prior to arrival. His NIH Stroke Scale was 2, and his evaluation included telestroke services with evaluation by the on-call neurologist. Due to his history of previous hemorrhagic CVA in July, Mr. Gonzalez was not a candidate for tPA. He was recommended to have a CTA of the head and neck, which did not show any acute intracranial arterial occlusions or severe stenosis. It did show atherosclerotic nonstenotic bilateral internal carotid arteries, and the neck CTA was read as normal. His brain CT showed no evidence of intracranial mass or hemorrhage. Old hematoma in the right cerebellar hemisphere is not identified currently. Based on these findings and his NIH Stroke score of 2, Mr. Gonzalez was deemed not to be a candidate for mechanical thrombectomy and Hospital Medicine was consulted for admission with further evaluation. PAST MEDICAL HISTORY: Includes: 1. 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 2. Hypertension. PAST SURGICAL HISTORY: Includes bilateral cataract extractions. MEDICATIONS: Home medications: 1. Amlodipine 10 mg daily. 2. Atorvastatin 80 mg daily. 3. Chlorthalidone 25 mg daily. 4. Lisinopril 20 mg b.i.d. 5. Spironolactone 50 mg q.a.m. 6. Tamsulosin 0.4 mg q.a.m. ALLERGIES: No known drug allergies. FAMILY HISTORY: The patient's father has a history of bradycardia and bladder cancer. Mother has a history of congestive heart failure. SOCIAL HISTORY: He denies any history of tobacco use. He denies any alcohol or recreational drug use. He does live alone. He lives in close proximity to his 3 sisters who do check on him frequently. Salena Gonzalez will be his surrogate decision maker in the event of emergency. She can be reached at , which is her cell phone, or [phone], which is her home phone. REVIEW OF SYSTEMS: Twelve-point review of systems was completed, all pertinent positives and negatives as per HPI. All others not mentioned are negative. PHYSICAL EXAMINATION GENERAL: This is a well-developed, middle-aged male. He is alert, pleasant, sitting up in the ED stretcher in no acute distress. VITAL SIGNS: Temperature 98.0, heart rate 64, respiratory rate 26, blood pressure 127/65, and O2 saturation is 97% on room air. HEENT: Head is normocephalic. There is area of localized swelling to the right posterior occiput, which has been present since his previous stroke per his sister. Pupils are equal, round, and reactive to light and accommodation. Extraocular movements are intact. No nystagmus noted. Sclerae are anicteric. Oral mucosa is moist. There is no oropharyngeal erythema or exudate. NECK: Supple with full range of motion. No lymphadenopathy appreciated. No JVD noted. No carotid bruits auscultated. LUNGS: Clear to auscultation. CARDIOVASCULAR: Regular rate and rhythm with normal S1 and S2. Heart sounds are slightly distant. I did not appreciate any murmurs. There is no peripheral edema. ABDOMEN: Soft and nontender. Protuberant with normoactive bowel sounds. There is no CVA tenderness. There is no guarding or rebound tenderness. MUSCULOSKELETAL: There is no clubbing or cyanosis. There is full range of motion in all 4 extremities. NEUROLOGIC: He is alert, he is oriented x4. Follows commands. There is a right facial droop. There is some mild dysarthria. Cranial nerves II through XII are intact. Prehfl-ub-ikif and knynfs-er-xutiot are intact bilaterally. There is no pronator drift. Mlhe-us-ditk is intact. There is equal strength in the upper and lower extremities bilaterally. With ambulation, the patient demonstrates ataxia with right-sided leaning and stumbling. SKIN: Appears grossly intact. It is warm and dry. DIAGNOSTIC STUDIES/LAB DATA: CBC: WBC 11.7, hemoglobin 12.1, hematocrit 36. INR is 1. CMP: Sodium 139, potassium 4.2, chloride 112, carbon dioxide 20, BUN 34, creatinine 1.51, glucose 188, lactic acid 1.7, calcium 10.2. Total bilirubin 0.4, AST 25, ALT 39, alk phos 61. Troponin 0.01. Total protein 7.3. Triglycerides 402, cholesterol 109, LDL 36, HDL 24. Chest x-ray reviewed with no signs of acute pathology by my read. Results of CTA and CT of the brain as per above. EKG shows a junctional rhythm, rate of 67 with no significant ischemic changes. ASSESSMENT AND PLAN: This is a 63-year-old male who presents today with concern for ataxia, slurred speech, some right-sided weakness, with sudden onset this afternoon in the presence of a previous cerebrovascular accident earlier this year. He will be admitted under OBV status to the telemetry floor. Plans are as follows: 1. Suspected cerebrovascular accident, possibly cerebellar. We will monitor him on the telemetry floor. He will be on q.2 hour neuro checks. I ambulated the patient for the first time and, per his sister and the patient, he is more unsteady and ataxic at his baseline. His sister states that this is similar to his presentation in July. I do also note that with his ambulation, we did ambulate to the bathroom, where he had notable difficulty urinating and was found to have urinary retention with a postvoid bladder scan of 646mL. This is also similar with his previous presentation in July at [facility] with his previous stroke. I did discuss the case with Dr. Corrales, who recommended walking the patient again in the morning and should there still be concern for ataxia, the MRI team should be activated and brought in for an emergent MRI. This has been ordered and communicated to nursing. The patient is not on aspirin due to previous history of hemorrhagic stroke. We will continue to hold this. We will continue his atorvastatin with the concern for an acute cerebrovascular accident. We will also hold his blood pressure medications. I do note that his blood pressure is actually in the soft side right now. He will be ordered an echocardiogram with bubble study. We will also add an A1c and will order PT and OT consult. He is okay to eat once he passes dysphagia screen; he is to continue heart-healthy diet. 2. Urinary retention. We will check a UA. I have asked the nursing staff in the ER to straight cath the patient and send UA down. The patient stated that this resolved on its own after 2 or 3 days at [facility] and denied having a Frias catheter. We will continue to monitor for urinary retention and discuss the need for a catheter if this continues. 3. Acute kidney injury. The patient was previously outside, appears to be somewhat dry. He has received 1 L of fluid in the ER and we will infuse one additional liter of fluid. 4. History of hypertension. Again with concern for potentially acute cerebrovascular accident, we will hold blood pressure medications at this time. Allow for some permissive hypertension. 5. FEN. Heart-healthy diet when okayed by nursing following dysphagia screen. 6. DVT prophylaxis. He is ordered SCDs. We will hold chemo prophylaxis in the presence of previous history of hemorrhagic cerebrovascular accident with potential recurrent cerebrovascular accident. 7. Code status. He is a full code. 8. Disposition: Previously living at home. If medically stable, he can be discharged to home, unclear at this time. TIME SPENT: Approximately 65 minutes was spent on this admission with more than half the time spent [id number] with the patient obtaining history and physical, performing the physical examination, and reviewing the plan of care. Plan of care was also reviewed with my attending, Dr. Tucker, who is in agreement. DARYL FERNANDEZ, SURGICAL LEAD [id number]/CPS #: [id number] ERICKA
[2018-11-30 06:48] LABS: ABS Lymphocytes 1.9 10^3/ul (1.0-4.8); ABS Monocytes 1.1 10^3/ul (0-0.8); ABS Neutrophils 8.6 10^3/ul (1.5-7.7); Eosinophil % 0.4 %; Hematocrit 32 % (42-52); Hemoglobin 11.2 g/dL (14.0-18.0); Lymphocyte % 16.6 %; Mean Corpuscular HGB Conc 35 g/dL (31-36); Mean Corpuscular Hemoglobin 32 pg (27-31); Mean Corpuscular Volume 91 fL (80-94); Mean Platelet Volume 8.6 fL (7.4-10.4); Platelet Count 187 10^3/uL (150-450); Red Blood Count 3.55 10^6 /uL (4.18-5.48); Red Cell Distribution Width 14 % (10-15); White Blood Count 11.7 10^3/uL (3.5-10.8)
[2018-11-30 07:01] LABS: BUN/Creatinine Ratio 26.7 (8-20); Calcium 10.1 mg/dL (8.6-10.3); EGFR African American 77.2 (>60); EGFR Non-African American 63.8 (>60); Potassium 4.2 mmol/L (3.5-5.0)
[2018-11-30] MEDS: Tamsulosin CAP* 0.4 MG PO SCH (08:20)
[2018-11-30] MEDS: Atorvastatin* 80 MG TAB PO SCH (08:20)
--- NOTE | 2018-11-30 08:55 | PN ---
Subjective Date of Service: 11/30/18 Interval History: Came overnight for possible TIA/CVA. History of hemorrhagic stroke in July 2018. This morning patient and niece at bedside reports symptoms have improved. Slurred speech improved, gait improved. This morning reports no complaints. Objective Active Medications: Acetaminophen (Tylenol Tab*) 650 mg PO Q4H PRN PRN Reason: FEVER/PAIN Atorvastatin Calcium (Lipitor*) 80 mg PO DAILY [facility] Last Admin: 11/30/18 08:20 Dose: 80 mg Ondansetron HCl (Zofran Inj*) 4 mg IV Q6H PRN PRN Reason: NAUSEA/VOMITING Tamsulosin HCl (Flomax Cap*) 0.4 mg PO DAILY [facility] Last Admin: 11/30/18 08:20 Dose: 0.4 mg Vital Signs - 8 hr 11/30/18 03:22 Temperature 97.3 F Pulse Rate 59 Respiratory 18 Rate Blood Pressure 152/66 (mmHg) O2 Sat by Pulse 94 Oximetry Oxygen Devices in Use Now: None Appearance: Sitting on bed, not in distress Respiratory: Clear to Auscultation Cardiovascular: RRR, No Edema Abdominal: NL Sounds; No Tenderness; No Distention, No Hepatosplenomegaly Neurological: Alert and Oriented x 3, - - speech clear, tongue midline, motor 5/ 5. gait- not ataxia, minimal swaying noted- ambulated with walker. Result Diagrams: 11/30/18 06:06 11/30/18 06:06 Assess/Plan/Problems-Billing Assessment: 63 year old Male with history of hemorrhagic stroke July 2018 here with possible TIA/CVA. - Patient Problems (1) TIA (transient ischemic attack) Current Visit: Yes Status: Acute Code(s): G45.9 - TRANSIENT CEREBRAL ISCHEMIC ATTACK, UNSPECIFIED SNOMED Code(s): 575525401 Comment: continue statin. no antiplatlet given recent hemorrhagic stroke CT negative, CTA done as well. symptoms per patient and family has improved. neuro consulted check ECHO PT/OT (2) TERRI (acute kidney injury) Current Visit: Yes Status: Acute Code(s): N17.9 - ACUTE KIDNEY FAILURE, UNSPECIFIED SNOMED Code(s): 46561974 Comment: improved with IV fluids, d/c IV fluids, as he is tolerating PO. (3) DVT prophylaxis Current Visit: No Status: Acute Code(s): WAC4857 - SNOMED Code(s): 058139277 Comment: SCD. recent hemorrhagic stroke Status and Disposition: resides at home. workup pending Pt/OT to determine discharge needs.
--- NOTE | 2018-11-30 13:59 | CONS ---
CONSULTATION REPORT: DATE OF CONSULT: 11/30/18 PATIENT OF: Dr. Vazquez of [place] HISTORY OF PRESENT ILLNESS: This is a 63-year-old man who presents with acute onset of dizziness, gait disturbance, slurring of speech, and visual problems yesterday. Of note in July of this year, he had a right cerebellar hemorrhagic stroke and was transferred from [facility] to [facility] where he was for a 5 -day course. He made a good recovery. He is able to walk normally, had some slurred speech and fatigue, but no other symptoms. Yesterday, he was mowing his lawn and he became acutely dizzy, but worsening slurred speech and visual symptoms and he was leaning to the right. A code gloria was called and he was evaluated by the on-call telestroke neurologist. No tPA was given because of an NIH stroke scale and because of his old cerebellar hemorrhage and his CTA did not show any large vessel occlusion and was not thought to be a candidate for mechanical thrombectomy. He did show some athero-sclerotic disease bilaterally in the carotids. The neck CTA was normal. I reviewed his records from [place]. He had a noncontributory echo and he had microbleeds on his MRI scan as well as his right cerebellar hemorrhage and he had acute left caudate ischemic stroke at the same time. He has a history of hypertension and is on atorvastatin for hyperlipidemia as well. He is status post cataract surgery. MEDICATIONS: His medicines at home include: 1. Amlodipine 10 mg daily. 2. Atorvastatin 80 mg daily. 3. Chlorthalidone 25 mg daily. 4. Lisinopril 20 mg b.i.d. 5. Spironolactone 50 mg q.a.m. 6. Tamsulosin 0.4 q.a.m. ALLERGIES: He has no known drug allergies. FAMILY HISTORY: The father has a history of bradycardia and bladder cancer. Mother has a history of congestive heart failure. SOCIAL HISTORY: He does not smoke or drink or use drugs. He lives alone. He is close to his sisters. REVIEW OF SYSTEMS: Negative in all 14 spheres other than the HPI. PHYSICAL EXAM: On exam, temperature 97.9, pulse 65, respirations 18, blood pressure 147/76. He is alert and oriented with normal naming without any aphasia, but he has slurred speech, which is back to his baseline now. His visual disturbance he says is back to his baseline, but he has some 4 or 5 beats of nystagmus off to the left. Cranial nerves are otherwise normal. There is no clear facial weakness. Today, there was a minor right facial asymmetry, it is unclear whether this is old or new. Motor exam revealed normal tone and strength. He had some mild past-pointing on the right compared to the left. He did not notice any difference in his reaching for objects, but he was not sure whether this was a change. When he walked, he needed to use a walker for stability and he tended to veer to the right. Sensation is intact to light touch. Reflexes were 1 and equal and downgoing toes. Neck was supple. Chest: Clear. Cardiovascular: Regular rate and rhythm. Abdomen is soft. Positive bowel sounds. Fundi show sharp disks. DIAGNOSTIC STUDIES/LAB DATA: I reviewed his CT scan from July done through the emergency room, it showed a right cerebellar bleed. His CT scan done yesterday was unremarkable. His CTA, which is described normal neck CTA, normal head CTA. Labs include white count of 11.7, hematocrit 32, platelets 187. Normal INR and PTT. Chemistries showing LDL of 36, normal CMP other than a creatinine initially 1.5, now 1.16, hemoglobin A1c 6.8. IMPRESSION AND PLAN: I discussed with Melvin and his and his hospitalist that I am concerned about generally the cerebellar hemorrhage he had back in July, but the microbleeds that he had on MRI scan. It is possible he has something like amyloidosis going on and have a call into telestroke up in [facility] to hopefully talk to one of the doctors who care of him then, but at least get more details and have the doctor review the full records. They did not comment on what they thought the cause of the microbleeds or his hemorrhagic stroke were, but there was an underlying cause that was not commented on his discharge summary and he was going to follow up with his stroke center up there 3 months out, but his doctor decided to defer to a neurologist, and then apparently canceled that visit down here, so I do not have any outpatient followup. One of the lo questions is what they think the underlying cause is and whether he should be on aspirin or not. I think at this point given what I know, it would make more sense to gather further information and speak to his doctors up in [place]. We will also be obtaining an MRI scan of his brain acutely and I think that he most likely had a nonhemorrhagic cerebellar stroke this time based on his symptoms and we will continue to observe him. He has had a negative echo up there. Thank you for sharing his case. [id number]/[facility] #: [id number] ERICKA
[2018-12-01] MEDS: Atorvastatin* 80 MG TAB PO SCH (08:04)
[2018-12-01] MEDS: Tamsulosin CAP* 0.4 MG PO SCH (08:05)
--- NOTE | 2018-12-01 10:46 | PN ---
Subjective Date of Service: 12/01/18 Interval History: Seen and examined at bedside, reports he was able to walk to the bathroom early this morning with a walker, reports he was walking better than he did before with less swaying. This morning no headaches. no chest pain, no shortness of breath. Objective Active Medications: Acetaminophen (Tylenol Tab*) 650 mg PO Q4H PRN PRN Reason: FEVER/PAIN Atorvastatin Calcium (Lipitor*) 80 mg PO DAILY [facility] Last Admin: 12/01/18 08:04 Dose: 80 mg Ondansetron HCl (Zofran Inj*) 4 mg IV Q6H PRN PRN Reason: NAUSEA/VOMITING Last Admin: 11/30/18 12:49 Dose: 4 mg Tamsulosin HCl (Flomax Cap*) 0.4 mg PO DAILY [facility] Last Admin: 12/01/18 08:05 Dose: 0.4 mg Vital Signs - 8 hr 12/01/18 07:50 Respiratory 18 Rate O2 Sat by Pulse 95 Oximetry Oxygen Devices in Use Now: None Appearance: Obese male lying in bed, Not in distress Ears/Nose/Mouth/Throat: Mucous Membranes Moist Respiratory: Symmetrical Chest Expansion and Respiratory Effort, Clear to Auscultation Cardiovascular: NL Sounds; No Murmurs; No JVD, RRR Abdominal: NL Sounds; No Tenderness; No Distention, No Hepatosplenomegaly Neurological: Alert and Oriented x 3, - - dysmetria on the right side. motor 5/5 , follows commands, occasional slurring of speech. Result Diagrams: 11/30/18 06:06 11/30/18 06:06 Assess/Plan/Problems-Billing Assessment: 63 year old Male with history of hemorrhagic stroke July 2018 here with possible TIA/CVA. - Patient Problems (1) TIA (transient ischemic attack) Current Visit: Yes Status: Acute Code(s): G45.9 - TRANSIENT CEREBRAL ISCHEMIC ATTACK, UNSPECIFIED SNOMED Code(s): 607799023 Comment: continue statin. no antiplatlet given recent hemorrhagic stroke CT negative, CTA done as well. symptoms per patient and family has improved. ECHO and MRI pending. Neuro input appreciated. for now holding aspirin, PT/OT (2) TERRI (acute kidney injury) Current Visit: Yes Status: Acute Code(s): N17.9 - ACUTE KIDNEY FAILURE, UNSPECIFIED SNOMED Code(s): 31480602 Comment: improved with IV fluids, IV fluids d/c'ed 11/30. (3) DVT prophylaxis Current Visit: No Status: Acute Code(s): RUF9863 - SNOMED Code(s): 831446374 Comment: SCD. recent hemorrhagic stroke (4) Diabetes Current Visit: Yes Status: Acute Code(s): E11.9 - TYPE 2 DIABETES MELLITUS WITHOUT COMPLICATIONS SNOMED Code(s): 80400765 Comment: new onset DM, A1c is 6.8, start metformin d/w patient regarding DM, weight loss recommended, starting diabetic diet, education consult requested. insulin sliding scale while in hospital. (5) Hypertension Current Visit: Yes Status: Acute Code(s): I10 - ESSENTIAL (PRIMARY) HYPERTENSION SNOMED Code(s): 33094162 Comment: BP meds were held, some readings >140, now 24+ hours since arrival to ED, will restart home dose lisinopril and monitor. Status and Disposition: resides at home. workup pending Pt/OT to determine discharge needs.
[2018-12-01] MEDS ORDERED: Dextrose 50% Syringe 50 ML* 25 GM/50 ML SYRINGE IV PUSH PRN (11:27)
[2018-12-01] MEDS: Lisinopril TAB* 10 MG PO SCH (11:53)
[2018-12-01] MEDS: Insulin LISPRO* 1 UNITS UNIT SUBCUT SCH (18:05)
[2018-12-01] MEDS: metFORMIN* 500 MG TAB PO SCH (18:06)
[2018-12-02] MEDS: Insulin LISPRO* 1 UNITS UNIT SUBCUT SCH ×2 (08:00→16:36)
[2018-12-02] MEDS: Atorvastatin* 80 MG TAB PO SCH (08:37)
[2018-12-02] MEDS: Tamsulosin CAP* 0.4 MG PO SCH (08:37)
[2018-12-02] MEDS: Lisinopril TAB* 10 MG PO SCH (08:38)
[2018-12-02] MEDS: metFORMIN* 500 MG TAB PO SCH ×2 (08:38→16:45)
--- NOTE | 2018-12-02 12:42 | PN ---
Subjective Date of Service: 12/02/18 Interval History: Seen and evaluated. No acute issues. Family at bedside. Awaiting MRI and echo Objective Active Medications: Acetaminophen (Tylenol Tab*) 650 mg PO Q4H PRN PRN Reason: FEVER/PAIN Atorvastatin Calcium (Lipitor*) 80 mg PO DAILY [facility] Last Admin: 12/02/18 08:37 Dose: 80 mg Dextrose (D50w Syringe 50 Ml*) 12.5 gm IV PUSH .FOR FS < 60 - SS PRN PRN Reason: FS < 60 Insulin Human Lispro (Humalog*) 0 units SUBCUT 0800,1700 [facility]; Protocol Last Admin: 12/02/18 08:00 Dose: Not Given Lisinopril (Prinivil Tab*) 20 mg PO DAILY [facility] Last Admin: 12/02/18 08:38 Dose: 20 mg Metformin HCl (Glucophage*) 500 mg PO 0800,1700 [facility] Last Admin: 12/02/18 08:38 Dose: 500 mg Ondansetron HCl (Zofran Inj*) 4 mg IV Q6H PRN PRN Reason: NAUSEA/VOMITING Last Admin: 11/30/18 12:49 Dose: 4 mg Tamsulosin HCl (Flomax Cap*) 0.4 mg PO DAILY [facility] Last Admin: 12/02/18 08:37 Dose: 0.4 mg Vital Signs - 8 hr 12/02/18 12/02/18 07:15 08:00 Temperature 97.6 F Pulse Rate 59 Respiratory 20 Rate Blood Pressure 151/81 (mmHg) O2 Sat by Pulse 96 96 Oximetry Oxygen Devices in Use Now: None Appearance: Sitting on bed, not in distress Eyes: PERRLA Respiratory: Symmetrical Chest Expansion and Respiratory Effort, Clear to Auscultation Cardiovascular: NL Sounds; No Murmurs; No JVD, RRR Extremities: No Edema Neurological: Alert and Oriented x 3, - - dysmetria on right side. motor 5/5 Result Diagrams: 11/30/18 06:06 11/30/18 06:06 Assess/Plan/Problems-Billing Assessment: 63 year old Male with history of hemorrhagic stroke July 2018 here with possible TIA/CVA. - Patient Problems (1) TIA (transient ischemic attack) Current Visit: Yes Status: Acute Code(s): G45.9 - TRANSIENT CEREBRAL ISCHEMIC ATTACK, UNSPECIFIED SNOMED Code(s): 355219594 Comment: continue statin. no antiplatlet given recent hemorrhagic stroke CT negative, CTA done as well. symptoms per patient and family has improved. ECHO and MRI pending. Neuro input appreciated. for now holding aspirin, PT/OT (2) TERRI (acute kidney injury) Current Visit: Yes Status: Acute Code(s): N17.9 - ACUTE KIDNEY FAILURE, UNSPECIFIED SNOMED Code(s): 71161761 Comment: improved with IV fluids, IV fluids d/c'ed 11/30. (3) DVT prophylaxis Current Visit: No Status: Acute Code(s): WTO7540 - SNOMED Code(s): 031002354 Comment: SCD. recent hemorrhagic stroke (4) Diabetes Current Visit: Yes Status: Acute Code(s): E11.9 - TYPE 2 DIABETES MELLITUS WITHOUT COMPLICATIONS SNOMED Code(s): 84530984 Comment: new onset DM, A1c is 6.8, start metformin d/w patient regarding DM, weight loss recommended, starting diabetic diet, education consult requested. insulin sliding scale while in hospital. (5) Hypertension Current Visit: Yes Status: Acute Code(s): I10 - ESSENTIAL (PRIMARY) HYPERTENSION SNOMED Code(s): 31999240 Comment: Home dose lisinopril. holding other antihypertensives, BP is acceptable. Status and Disposition: resides at home. workup pending Pt/OT to determine discharge needs.
[2018-12-02] MEDS ORDERED: Perflutren Lipid Microsphere* 3 ML VIAL ONE (13:01)
--- NOTE | 2018-12-02 15:07 | ECHO ---
*[facility]* [place] [address] Fax #: [phone] Transthoracic Echocardiogram Patient: Melvin Gonzalez : 1955 Study Date: 12/02/2018 Age: 63 Gender: M HR: 71 bpm Height: 79 in /200.7 cm BSA: 2.65 m^2 Weight: 284.4 lb /129.3 kg BMI: 32.1 kg/m^2 *[employer] Articles: * Lilia Sparrow [facility] *Referring Physician: * Keiry Trejo *Reading Physician: * Clari Duarte MD Indications: CVA. History: Cerebrovascular accident. Risk factors: Hypertension. Conclusions Summary: 1. Left ventricle: The cavity size is normal. Wall thickness is moderately increased. Systolic function is normal. The estimated ejection fraction is 55-60%. 2. Left atrium: The atrium is mildly dilated. 3. Aortic valve: There is mild to moderate regurgitation. The valve area index by the peak velocity method is 0.87 cm^2/m^2. The valve area by the mean velocity method is 2.3 cm^2. 4. C/t transesophageal echocardiogram 08/07/2018, AI is stable. Mitral regurgitation is not apprecaited now although it is TDS and the views are limited. Left ventricle ejection fraction is stable. Study data: Transthoracic echocardiogram. Procedure: Transthoracic echocardiography was performed. Image quality was suboptimal. Intravenous Definity , 3 mlswas administered. Complete 2D, spectral Doppler, and color flow Doppler. Location: Bedside. Patient status: Inpatient. Patient room number: 447 02. Rhythm: Normal sinus rhythm. Findings Left ventricle: The cavity size is normal. Wall thickness is moderately increased. Systolic function is normal. The estimated ejection fraction is 55-60%. Wall motion is normal; there are no regional wall motion abnormalities. There is no consistent Doppler evidence of clinically significant diastolic dysfunction. Right ventricle: The cavity size is normal. Systolic function is normal. Left atrium: The atrium is mildly dilated. Right atrium: Not well visualized. Mitral valve: The annulus is mildly calcified. The leaflets are normal thickness. There is no evidence of stenosis. There is no significant regurgitation. Aortic valve: The valve is probably trileaflet. The leaflets are mildly thickened. The findings are consistent with very mild stenosis. There is mild to moderate regurgitation. Tricuspid valve: Not well visualized. The leaflets are normal thickness. There is no evidence of stenosis. There is no significant regurgitation. Pulmonic valve: Not well visualized. There is no significant regurgitation. Aorta: Aortic root: The aortic root is appears normal. Ascending aorta: The ascending aorta is moderately dilated. Aortic arch: The aortic arch is appears normal. Pericardium: There is no significant pericardial effusion. Pulmonary arteries: Not well visualized. Systemic veins: Inferior vena cava: The vessel is normal in size. The respirophasic diameter changes are in the normal range (>= 50%). Measurements Left ventricle Value Ref Aortic valve Value Ref KALA, LAX 5.1 cm 4.2 - 5.8 Hang diam, ED 2.7 cm ---- ESD, LAX 2.5 cm 2.5 - 4.0 Peak v, S 2.3 m/sec ---- FS, LAX (H) 52 % 25 - 43 VTI, S 35.5 cm ---- PW, ED, LAX (H) 1.7 cm 0.6 - 1.0 Mean grad, S 10.0 mm Hg ---- EF (H) 83 % 52 - 72 Peak grad, S 21.2 mm Hg ---- E', lat hang, TDI (L) 9.7 cm/sec >=10.0 MIRIAN, VTI 2.60 cm^2 ---- E/e', lat hang, 7 MIRIAN, Vmax 2.30 cm^2 ---- TDI AR peak v 4.98 m/sec ---- E', med hang, TDI (L) 5.3 cm/sec >=7.0 AR PHT 506 ms ---- E/e', med hang, 12 AR peak grad 99 mm Hg ---- TDI E', avg, TDI 7.5 cm/sec Mitral valve Value Ref E/e', avg, TDI 9 <=14 Peak E 0.65 m/sec ---- Peak A 0.86 m/sec ---- LVOT Value Ref Decel time 203 ms ---- Diam, S 2.00 cm Peak E/A ratio 0.7 ---- Area 3.1 cm^2 Peak margarito, S 1.67 m/sec Pulmonic valve Value Ref Peak grad, S 11 mm Hg Peak v, S 0.74 m/sec ---- Mean grad, S 5 mm Hg Peak grad, S 2.0 mm Hg ---- SV 98 ml Aortic root Value Ref Ventricular septum Value Ref Root diam 2.8 cm <4.6 IVS, ED (H) 1.6 cm 0.6 - 1.0 Ascending aorta Value Ref Right ventricle Value Ref AAo AP diam, S 4.2 cm ---- KALA, LAX 2.5 cm Aortic arch Value Ref Left atrium Value Ref Arch diam 3.3 cm ---- AP dim, ES (H) 4.20 cm 3.00 - 4.00 Inferior vena cava Value Ref ML dim, A4C 5.1 cm Diam 1.4 cm ---- SI dim, A4C 6.8 cm Vol/bsa, ES, A/L (H) 35 ml/m^2 16 - 34 Right atrium Value Ref Estimated RAP 8 mm Hg Legend: (L) and (H) elle values outside specified reference range. Prepared and electronically signed by Clari Duarte MD 12/02/2018 15:06
[2018-12-02] MEDS ORDERED: Dextrose 50% VIAL 50 ml IV ONE (17:09)
[2018-12-02] MEDS ORDERED: Insulin REGULAR(*) 1 UNITS UNIT IV PUSH ONE (17:09)
[2018-12-02 21:52] VITALS: BP 129/64
--- NOTE | 2018-12-02 23:33 | DS ---
CC: Dr. Bar Vazquez from [place]; Dr. Melvin Corrales * DISCHARGE SUMMARY: DATE OF ADMISSION: 11/29/18 DATE OF DISCHARGE: PRIMARY CARE PROVIDER: Dr. Bar Vazquez of [place]. CHIEF COMPLAINT: The patient having dizziness, weakness, and slurred speech. ADMISSION DIAGNOSIS: At that time was suspected cerebrovascular accident versus transient ischemic attack. DISCHARGE DIAGNOSES: Include: 1. Cerebellar infarct with microhemorrhages. 2. History of hemorrhagic infarct. 3. New-onset diabetes. 4. History of hypertension. HOSPITAL COURSE: This is a 63-year-old male with past medical history of hemorrhagic stroke in July 2018 who had presented to the emergency room because of dizziness, weakness, and slurred speech. The patient was seen and evaluated in the emergency room, please refer to the dictation done by Dr. Eliane Tucker on 11/29/18 for further details. In the emergency room, a CAT scan and a CTA were done and did not find any acute pathology. The patient was ordered for an MRI, neurologist, Dr. Corrales, was consulted. Due to the patient having a history of big hemorrhagic infarct with microbleeds, the recommendation was not to start the aspirin just yet. The patient also had urinary retention which resolved on its own. The patient also developed acute kidney injury for which the patient received IV fluids. The kidney numbers improved after the patient received IV fluids. A1c was checked which found the hemoglobin A1c to be 6.8. I discussed with the patient that the patient now has new-onset diabetes, started the patient on metformin 500 mg b.i.d. The patient's initially home antihypertensives were held. We resumed the patient's lisinopril 20 mg daily to control the blood pressure. Lipitor 80 mg was continued. Brain MRI was done this morning, which showed right punctate bleed acute to early subacute in the left parietal centrum semiovale with no mass effect or hemorrhage. Also old lacunar infarcts were on the left greater than right watershed territories along with several chronic microhemorrhages with distribution suggestive of prior hypertensive episode. I discussed with the patient at bedside as well as Dr. Corrales. Dr. Melvin Corrales discussed the case with [place] teleneurologist, and the recommendations were made that this is likely secondary to amyloid disease and the patient is at high risk for bleeding and at this point, the risk of starting antiplatelet regimen outweighs the benefits though the final determination is to not send the patient home on aspirin, rather continue his Lipitor and manage his blood pressure as well as diabetes. I had a discussion with the patient along with the niece who was present at bedside. They verbalized understanding. PHYSICAL EXAMINATION: Please see my progress note done today. DISCHARGE PLANNING: The patient is to be discharged home in stable condition. DISCHARGE MEDICATIONS: Include: 1. Lipitor 20 mg daily. 2. Metformin 500 mg b.i.d. 3. Atorvastatin 80 mg daily. 4. Tamsulosin 0.4 mg daily. 5. Chlorthalidone 25 mg daily. The patient's blood pressure has been stable, currently is 131/69. DISCHARGE CONDITION: Fair. PROGNOSIS: Guarded. DISCHARGE DISPOSITION: Home. The niece is going to provide a ride, recommended the patient to follow diabetic diet, instructions were given. The patient is to follow up with his primary care provider, Dr. Dinero, within a week. The patient is to follow up with Dr. Melvin Corrales within 1 to 2 weeks, phone number has been given. The niece has taken responsibility for calling the neurologist and making that appointment. I asked the patient to return to the emergency for any confusion, new weakness, worsening in balance, speech, or if he develops any chest pain or palpitations, or if any new symptoms occur. The patient to monitor blood pressure at home and to call the PCP if blood pressure is greater than 150 systolic or greater than 90 diastolic. [id number]/[facility] #: [id number] MTDDoris
--- NOTE | 2018-12-03 20:17 | PN ---
PROGRESS NOTE: DATE OF SERVICE: 12/02/18 DATE OF DICTATION: 12/03/18 SUMMARY: This is followup of phone call from yesterday. I had sent the MRI scan films to [place] for review and had reviewed the MRI scan with Dr. Zuniga here, who reviewed the films and thought that they were consistent with [employer]ION SPECIALIST amyloidosis. I spoke to Dr. Arango, telestroke neurologist on-call last night, who said given the MRI scan findings as reported to her, she would not put on aspirin and thought that most likely this was amyloid. She could not review the films maybe but then called me back and said she thought given the distribution as a microbleed that this is more likely hypertensive microbleed, but would again given the number of them, not have him on any antiplatelet or anticoagulation because the risk of bleeding was too high. I had spoken to the hospitalist after my first conversation with her and the patient was sent home on no antiplatelet medication. [id number]/[facility] #: [id number] ERICKA
== END 2018-12-02 20:30 | disposition home or self-care (01) | DRG 45 ==
LOC: ED 17:34 → MEDTELE 21:42 → OBSVTOIN 12-02 17:30
PROVIDERS: ADMIT Internal Medicine; ATTEND Internal Medicine
DX: I63.9 Cerebral infarction, unspecified (principal); N17.9 Acute kidney failure, unspecified; E85.89 Other amyloidosis; G81.91 Hemiplegia, unspecified affecting right dominant side; R47.81 Slurred speech; H53.9 Unspecified visual disturbance; R29.702 NIHSS score 2; I10 Essential (primary) hypertension; E78.5 Hyperlipidemia, unspecified; I65.23 Occlusion and stenosis of bilateral carotid arteries; R33.9 Retention of urine, unspecified; Z79.899 Other long term (current) drug therapy; Z80.52 Family history of malignant neoplasm of bladder; Z82.49 Family history of ischemic heart disease and other diseases of the circulatory system
CPT/HCPCS: 36415; 70450; 70496; 70498; 70551; 71045; 80048; 80053; 80061; 81003; 83036; 83605; 83721; 84484; 85025; 85610; 85730; 86850; 86900; 86901; 93005; 93306; 99285; A9270-GY; C8929; G0378; G8978-GP-CJ; G8979-GP-CI; J2405; Q9967